=== PATIENT | female | born 1970 | race Two or more races ===

== ENCOUNTER 2025-02-22 08:55 | Outpatient (CLI) | payer OTHER, SELFPAY | END 2025-02-22 08:56 | disposition home or self-care (01) | PROVIDERS: PCP Internal Medicine; Visit Provider Internal Medicine | DX: R52 Pain, unspecified (principal); R53.83 Other fatigue | CPT/HCPCS: 80053; 84443; 84703; 86038; 86140 ==

== ENCOUNTER 2025-05-03 15:08 | Outpatient (CLI) | payer OTHER, SELFPAY | END 2025-05-03 15:09 | disposition home or self-care (01) | LOC: NFLDREF 15:10 | PROVIDERS: PCP Internal Medicine; Visit Provider Internal Medicine | DX: N95.0 Postmenopausal bleeding (principal) | CPT/HCPCS: 83001; 83002 ==